=== PATIENT | male | born 1985 | race Caucasian/White ===

== ENCOUNTER 2017-02-17 15:23 | Inpatient (IN) | payer SELFPAY ==
[2017-02-17 15:53] LABS: % IMMATURE GRANULYOCYTES 0.2 % (0.0-1.1); ABSOLUTE IMMATURE GRANULOCYTES 0.01 10^3/uL (0.00-0.10); ADD DIFF? NO; ADD MORPH? NO; ADD SCAN? NO; ATYPICAL LYMPHOCYTE FLAG 40 (0-99); FRAGMENT RBC FLAG 0 (0-99); HEMATOCRIT 42.3 % (40.0-51.0); HEMOGLOBIN 14.3 g/dL (13.7-17.5); LEFT SHIFT FLG 0 (0-99); LIPEMIA HEMOLYSIS FLAG 90 (0-99); MEAN CELL HEMOGLOBIN 29.7 pg (27.9-34.1); MEAN CELL HEMOGLOBIN CONCENTR. 33.8 g/dL (32.4-36.7); MEAN CELL VOLUME 87.8 fL (81.5-99.8); MEAN PLATELET VOLUME 10.4 fL (8.7-11.7); PLATELET CLUMPS FLAG 0 (0-99); PLATELET COUNT 236 10^3/uL (150-400); RED BLOOD CELL COUNT 4.82 10^6/uL (4.40-6.38); RED CELL DISTRIBUTION WIDTH 14.3 % (11.5-15.2)
[2017-02-17 16:07] LABS: ANION GAP 10 mEq/L (8-16); CALCIUM 9.2 mg/dL (8.5-10.4); CARBON DIOXIDE 26 mEq/l (22-31); CHLORIDE 109 mEq/L (97-110); CREATININE 0.8 mg/dL (0.7-1.3); ETHANOL SERUM < 10 mg/dL (0-10); GLOMERULAR FILTRATION RATE > 60; GLUCOSE 67 mg/dL (70-100); POTASSIUM 3.5 mEq/L (3.5-5.2); SALICYLATE < 1.0 mg/dL (2.0-20.0); SODIUM 145 mEq/L (134-144)
--- NOTE | 2017-02-17 16:31 | EDPHY ---
H & P Time Seen by Provider: 02/17/17 15:25 HPI/ROS: HPI Depression, suicidal ideation. 31-year-old male by ambulance from the street. 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 He reports he is new to [place]. He has a history of chronic pain. He has a history of depression. He went to the [facility] because he stated that he felt suicidal. He was then sent here by ambulance. He states that he feels suicidal because of his chronic pain all over his body. He denies a plan because he states that any plan to kill himself is too expensive. He tells me that his told herself after a miscarriage. He reports that he was living with his mother in [place] but was then kicked out of her house and had no vertigo so he came up to [place]. ROS: Constitutional: No fever, no chills. As above. Eyes: No discharge. No changes in vision. ENT: No sore throat. No nasal congestion or rhinorrhea. Respiratory: No cough. No shortness of breath. Cardiac: No chest pain, no palpitations. Gastrointestinal: No abdominal pain, no vomiting, no diarrhea. Genitourinary: No hematuria. No dysuria or increased frequency with urination. Musculoskeletal: No back pain. No neck pain. Chronic pain all of his joints. Skin: No rashes. Neurological: No headache. No focal weakness or altered sensation. Past medical history: Asthma, scoliosis, CVA, brain injury, DJD, chronic pain, COPD. Social history: As above. Denies alcohol. Smoker. Denies IV drugs or street drugs. Physical Exam: General Appearance: Alert, no distress. Manic in nature. Disheveled. This patient is responding to questions appropriately and in full sentences. This patient appears well-hydrated and well-nourished. Eyes: Pupils equal and round no pallor or injection. No lid edema, erythema or injection. Respiratory: There are no retractions, lungs are clear to auscultation with good air movement bilaterally. Cardiovascular: Regular rate and rhythm. No murmur. Gastrointestinal: Abdomen is soft and nontender, no masses, bowel sounds normal. No focal tenderness at McBurney's point. No Rouse sign. Neurological: Motor sensory function is grossly intact. Cranial nerves are normal. Gait is normal. Skin: Warm and dry, no rashes. Musculoskeletal: Neck is supple and nontender. Extremities are symmetrical. All joints range without pain or impingement. Psychiatric: No agitation. No depression. Database: EKG: Imaging: Procedures: Emergency department course: 4:30 p.m., patient medically cleared. Behavioral Health notified. 8 p.m., informed by [facility] patient will be admitted to [address] [place] [address]. His remaining emergency department course under my care has been uneventful. He was transferred to [address] [place] [address] in stable condition. I filled out the appropriate transfer paperwork. Differential Diagnosis: The differential diagnosis on this patient includes but is not limited to malingering, situational depression, suicidal ideation. This represents a partial list of diagnoses considered. These considerations are based on history , physical exam, past history, reassessment and diagnostic testing. Smoking Status: Current every day smoker Constitutional: Initial Vital Signs Temperature (C) 36.6 C 02/17/17 15:33 Heart Rate 72 02/17/17 15:33 Respiratory Rate 18 02/17/17 15:33 Blood Pressure 113/73 02/17/17 15:33 O2 Sat (%) 98 02/17/17 15:33 O2 Delivery Mode Room Air Allergies/Adverse Reactions: cefaclor [From [facility]] Allergy (Verified 02/17/17 15:32) Home Medications: Medication Instructions Recorded Albuterol 02/17/17 Medical Decision Making - Data Points Laboratory Results: Laboratory Results 02/17/17 15:43 02/17/17 15:43 02/17/17 02/17/17 02/17/17 15:50 15:43 15:43 WBC 4.93 10^3/uL 10^3/uL (3.80-9.50) RBC 4.82 10^6/uL 10^6/uL (4.40-6.38) Hgb 14.3 g/dL g/dL (13.7-17.5) Hct 42.3 % % (40.0-51.0) MCV 87.8 fL fL (81.5-99.8) MCH 29.7 pg pg (27.9-34.1) MCHC 33.8 g/dL g/dL (32.4-36.7) RDW 14.3 % % (11.5-15.2) Plt Count 236 10^3/uL 10^3/uL (150-400) MPV 10.4 fL fL (8.7-11.7) Neut % (Auto) 61.9 % % (39.3-74.2) Lymph % (Auto) 27.0 % % (15.0-45.0) [place] % (Auto) 8.5 % % (4.5-13.0) Eos % (Auto) 2.0 % % (0.6-7.6) Baso % (Auto) 0.4 % % (0.3-1.7) Nucleat RBC Rel Count 0.0 % % (0.0-0.2) Absolute Neuts (auto) 3.05 10^3/uL 10^3/uL (1.70-6.50) Absolute Lymphs (auto) 1.33 10^3/uL 10^3/uL (1.00-3.00) Absolute Monos (auto) 0.42 10^3/uL 10^3/uL (0.30-0.80) Absolute Eos (auto) 0.10 10^3/uL 10^3/uL (0.03-0.40) Absolute Basos (auto) 0.02 10^3/uL 10^3/uL (0.02-0.10) Absolute Nucleated RBC 0.00 10^3/uL 10^3/uL (0-0.01) Immature Gran % 0.2 % % (0.0-1.1) Immature Gran # 0.01 10^3/uL 10^3/uL (0.00-0.10) Sodium 145 mEq/L H mEq/L (134-144) Potassium 3.5 mEq/L mEq/L (3.5-5.2) Chloride 109 mEq/L mEq/L (97-110) Carbon Dioxide 26 mEq/l mEq/l (22-31) Anion Gap 10 mEq/L mEq/L (8-16) BUN 12 mg/dL mg/dL (7-23) Creatinine 0.8 mg/dL mg/dL (0.7-1.3) Estimated GFR > 60 Glucose 67 mg/dL L mg/dL (70-100) Calcium 9.2 mg/dL mg/dL (8.5-10.4) Salicylates < 1.0 mg/dL L mg/dL (2.0-20.0) Urine Opiates Screen NEGATIVE (NEGATIVE) Acetaminophen < 10 mcg/mL L mcg/mL (10.0-30.0) Urine Barbiturates NEGATIVE (NEGATIVE) Ur Phencyclidine Scrn NEGATIVE (NEGATIVE) Ur Amphetamine Screen NEGATIVE (NEGATIVE) U Benzodiazepines Scrn NEGATIVE (NEGATIVE) Urine Cocaine Screen NEGATIVE (NEGATIVE) U Marijuana (THC) Screen NEGATIVE (NEGATIVE) Ethyl Alcohol < 10 mg/dL mg/dL (0-10) Medications Given: Discontinued Medications Lorazepam (Ativan) 1 mg PO EDNOW ONE Stop: 02/17/17 17:19 Last Admin: 02/17/17 17:21 Dose: 1 mg Departure - Departure Disposition: [facility] IP Clinical Impression: Situational depression, Suicidal ideation Referrals: NONE *PRIMARY CARE P,. [Primary Care Provider] - As per Instructions
[2017-02-17] MEDS ORDERED: LORazepam 1 MG TAB PO ONE (17:18)
[2017-02-17] MEDS ORDERED: ACETAMINOPHEN 325 MG TAB PO PRN (23:15)
[2017-02-17] MEDS ORDERED: MAG HYDROX/AL HYDROX/SIMETH 30 ML UDCUP PO PRN (23:15)
[2017-02-17] MEDS ORDERED: MAGNESIUM HYDROXIDE 30 ML UDCUP PO PRN (23:15)
[2017-02-17] MEDS ORDERED: ALBUTEROL 200 PUFFS/18 GM MDI IH PRN (23:16)
[2017-02-17] MEDS ORDERED: OLANZapine 5 MG TAB PO PRN (23:18)
[2017-02-17] MEDS: LORazepam 0.5 MG TAB PO PRN (23:29)
[2017-02-17] MEDS ORDERED: OLANZapine 10 MG TAB PO SCH (23:30)
[2017-02-18] MEDS: NICOTINE POLACRILEX 2 MG GUM B PRN ×2 (13:05→17:15)
[2017-02-18] MEDS: NICOTINE 14 MG/24 HR PATCH TD SCH (13:05)
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
--- NOTE | 2017-02-19 01:20 | BCON ---
[f rep st] BEHAVIORAL HEALTH CONSULTATION DATE OF CONSULTATION: 02/18/2017 REFERRING PHYSICIAN: Dr. Rich REASON FOR REFERRAL: Medical clearance for inpatient behavioral health stay. HISTORY OF PRESENT ILLNESS: The patient came to the emergency department reporting suicidal ideation due to chronic pain. Per review of notes in the medical record, he had come to [place] from [place] where he was living with his mother, but apparently he had conflict at home. He intended to stay with his half brother in [place]; however, he had conflict there, also. He has been homeless for an unknown time in [place], and finally came to [place] and presented at the emergency department. He was evaluated by the mental health team and admitted for further psychiatric care. Currently, he complains of chronic back pain and chronic foot pain. He reports he takes him 15 minutes to walk 1 block. He reports he is unable to work because of the pain. He says he has "bone on bone" at the L4-L5 level. He does not report what kind of medical evaluation he has had for this, saying that he has no insurance and he cannot be evaluated. Otherwise, he is without any acute complaints. PAST MEDICAL HISTORY: Brain injury, chronic pain, asthma, scoliosis, COPD. PAST SURGICAL HISTORY: He denies any surgeries. MEDICATIONS: He was on no medications. ALLERGIES: Listed to cefaclor and ketorolac. SOCIAL HISTORY: As above described in the HPI. Additionally, he is a smoker, and he is requesting nicotine gum. FAMILY HISTORY: Noncontributory. REVIEW OF SYSTEMS: Other than in HPI, he reports that he is unsure if he has had recent weight loss. He says his clothes fit about the same as they usually do. He reports that his appetite is okay. He denies nausea, vomiting, constipation, or diarrhea. He denies cough or dyspnea. He denies chest pain or palpitations, and other than that, a 10-point review of systems to the extent that could be completed was negative. PHYSICAL EXAMINATION: VITAL SIGNS: Blood pressure is 104/70, heart rate is 90 , respiratory rate is 14, oxygen saturation is 94% on room air. His weight is 63.5 kg for a body mass index of 16.5. GENERAL: This is a very thin man, appears his chronologic age, in bed, moderately cooperative, and showing distress likely out of proportion to any real pathology with any movements. HEENT: Extraocular movements are intact. Pupils are equal, round, and reactive to light. Mucous membranes are moist. Dentition is in good condition. NECK: Supple. HEART: There is a regular rate and rhythm with no murmurs, rubs, or gallops. LUNGS: Clear to auscultation bilaterally. ABDOMEN : Soft, nontender, nondistended with normoactive bowel sounds. EXTREMITIES: There is no cyanosis, clubbing, or edema. NEUROLOGIC: He is alert and oriented x3. Cranial nerves 2-12 are grossly intact. There is no focal weakness, and sensation is intact to light touch. LABORATORY STUDIES: Obtained in the emergency department, CBC was entirely within normal limits. Serum chemistry revealed overall normal renal function and electrolytes. His sodium was slightly elevated at 145. His glucose was slightly low at 67. Toxicology in the urine was negative for any substances of abuse and in the serum was negative for salicylates, acetaminophen, or ethyl alcohol. ASSESSMENT AND RECOMMENDATIONS: 1. Mental health issues pending further evaluation and management per Psychiatry and the mental health team. 2. Chronic pain. Difficult to differentiate true pain from possible malingering. Advise obtaining collateral information if possible from any prior medical evaluations, though on my exam, he was not cooperative with reporting where he might have had evaluation in the past. Acetaminophen has been per prescribed. I will add ibuprofen. 3. Underweight status. I will add a TSH to his labs that were drawn yesterday. 4. Tobacco dependence with request for nicotine gum. I see that this has been ordered. Advised smoking cessation. I see no medical contraindications to the patient's continued stay in the inpatient behavioral health unit or to any psychiatric medications or procedures. Thank you very much for including me in the care of the patient, and please do not hesitate to contact me or the hospitalist service should there be need for further medical evaluation. /[id number]/MODL MTDD
[2017-02-19] MEDS: NICOTINE POLACRILEX 2 MG GUM B PRN ×5 (08:42→18:07)
[2017-02-19] MEDS: NICOTINE 14 MG/24 HR PATCH TD SCH (08:48)
[2017-02-19] MEDS: LORazepam 0.5 MG TAB PO PRN ×3 (10:22→19:49)
--- NOTE | 2017-02-19 13:44 | SOAPPROG ---
SOAP Progress Note Assessment/Plan: Assessment: 02/19/17 13:39 Plan: 1. Maintain current treatment. 2. Patient continues to show no evidence of acute psychiatric symptoms. He has no AH/VH, he shows no signs of paranoia or delusions and denies any SI/HI. His main issues are that he is homeless and has no resources. When CC attempted to refer patient to [facility] to get connected with social media marketing manager, patient dismissed the referral, stating "I've already been there, all they offered me was a sleeping bag...they're not going to help me." Patient told RN "if you discharge me and I don't have a place to stay, I'm going to kill myself." 3. Will add malingering to patient's diagnoses. 4. CC will continue to work with patient to identify social media marketing manager that patient would be willing to accept. Otherwise, he will be responsible for finding his own fci since he refuses to go to homeless fci in the area. 5. Patient does have an intake appointment at [facility] on 02/23/17 at 11:45am. 6. Change legal status to voluntary. 7. Likely to d/c on Wednesday, unless he chooses to discharge over the weekend. CC has made him aware of his f/u appt next Wednesday. Subjective: Met with patient and discussed with staff. Patient is much calmer, less angry and hostile today. He is not yelling or screaming at MD. He politely requests a radio so he can listen to music. Staff suggest patient attend recreational group this AM and he can pick songs to listen to while group is going on. Patient states he wants to "take a radio to my room" where he can be alone b/c "I like to be away from people." Patient denies any AH/VH, there is no evidence of paranoia or delusions and patient denies any SI/HI. Objective: Vital Signs Temp Pulse Resp BP Pulse Ox 36.6 C 64 14 122/73 H 98 02/19/17 06:00 02/19/17 06:00 02/19/17 06:00 02/19/17 06:00 02/19/17 06:00 MSE: Thin, tall, wearing T-shirt and scrub pants. 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
[2017-02-20] MEDS: NICOTINE POLACRILEX 2 MG GUM B PRN ×6 (08:22→15:51)
[2017-02-20] MEDS: NICOTINE 14 MG/24 HR PATCH TD SCH (08:24)
[2017-02-20] MEDS: ESCITALOPRAM OXALATE 10 MG TAB PO SCH (10:36)
[2017-02-20] MEDS: LORazepam 0.5 MG TAB PO PRN ×2 (14:45→18:47)
[2017-02-20] MEDS: IBUPROFEN 600 MG TAB PO PRN (15:50)
--- NOTE | 2017-02-20 19:54 | SOAPPROG ---
SOAP Progress Note Assessment/Plan: Assessment: Plan: 02/20/17 19:56 My observation is in concordance with Dr. Rich's. Pt has long hx of depression and clear, primitive character issues. He is stressed by severe, if self- imposed, psychosocial stressors. He demonstrates salient signs and sx's of depression and I see no reason to refuse his request for antidepressant medication given a clear message that he needs to work on the other issues in his life as well. Will start Lexapro at 10mg, monitor. He reports "reverse chemical imbalance with every medication I've ever taken" describing severe side effects with most psychotropics except, interestingly, amitriptyline. As this is not a reasonable option this patient we will begin a trial of Lexapro. Subjective: Pt seen, discussed with staff and Dr. Rich, chart reviewed. He implored me to "take me seriously". States, "I really am depressed and all I ever think about is suicide." He states he wants to take an antidepressant as he believes this could be helpful as it has (to a limited degree by his own admission) in the past. He is somatically focussed, especially in regards to his pain. He reports "severe 20 out of 10" pain "everywhere all over my body." He repeatedly refers to having "degenerative disc disease." He relates this to pain in his back and "every joint in my body." He is witnessed walking briskly in the halls, moving without difficulty. He states, "It takes me ten minutes to get out of bed." He dramatically acts as if he cannot stand out of his chair in my office until I comment that I don't think it's really that bad and he gets up with no difficulty. I reviewed with him options for antidepressant treatment emphasizing that, at best, an AD would be a "tool" to help him in his journey of psychological healing. He is agreeable to a trial of Lexapro and the risks, benefits and alternatives are reviewed. Later in the afternoon, pt presented to the nurses' station and requested opioid pain medications. I was called and I told the RN that I would not prescribe these meds and that I had told the pt this in detail earlier. He then requested d/c and I agreed writing the orders. When it came time for him to actually leave the hospital, however, he stated he was not safe and asked to stay. D/c order was rejected. Objective: Vital Signs Temp Pulse Resp BP Pulse Ox 36.4 C 84 14 112/61 98 02/20/17 06:41 02/20/17 06:41 02/20/17 06:41 02/20/17 06:41 02/20/17 06:41 MSE: Tense, guarded, dramatic. Raises his voice with me several times, stating "no one cares about me", frequently using profanity. I redirected him on this behavior and he responded appropriately. His affect is constricted, stable, somewhat irritable and dysphoric. Mood is "really depressed." TP is linear, goal directed. TC reveals no psychosis. No SI at time of my interview. - Time Spent With Patient Time Spent With Patient: 35" ICD10 Worksheet Patient Problems: Problems Problem Status Onset Malingering Acute Personality change due to head injury Acute Situational depression Acute
[2017-02-21] MEDS: ESCITALOPRAM OXALATE 10 MG TAB PO SCH (08:11)
[2017-02-21] MEDS: NICOTINE POLACRILEX 2 MG GUM B PRN ×5 (08:14→17:10)
[2017-02-21] MEDS: NICOTINE 14 MG/24 HR PATCH TD SCH ×2 (08:31→10:40)
[2017-02-21] MEDS: LORazepam 0.5 MG TAB PO PRN ×2 (10:35→17:58)
[2017-02-21] MEDS: IBUPROFEN 600 MG TAB PO PRN (16:33)
[2017-02-21] MEDS ORDERED: diphenhydrAMINE 25 MG CAP PO PRN (20:14)
--- NOTE | 2017-02-21 21:10 | SOAPPROG ---
SOAP Progress Note Assessment/Plan: Assessment: 31yo CM from [place] with histrionic and borderline traits, and hx of malingering, and THC use. Reports chronic depression and suicidality, also chronic pain without clinical evidence. Recently agreed to trial Lexapro. 02/21/17 15:52 per staff, slept 12hr. On interview, reports not wanting Lexapro 10mg, "too strong" , doesn't like side effects, has had every s/e to any medication he's tried in past, and Lexapro didn't help anything, rather just gave him s/e of feeling "tense, can't swallow" after taking the med. "I won't take that again". Discussed options, agreed to try 5mg dose instead. Also c/o wanting med prn for sleep, usually Benadryl but more often just sleepy- time tea works. Talked about trying to reach his mother on FB, would like help doing so. Referred to t/w CM. Otherwise has no way to get her number. Volunteered that his mother "takes 10mg methadone 8x/day and percosets...we have the same genetic problems but my pain is worse." Related frustration of losing belongings (stolen) in [place], and also having problems getting help/housing "because I'm a convicted felon". Requests "someone to help me with insurance and getting disability", adding that his mother has his records together. T/a his hx of 3x CVA also cardiac surgery long ago. MSE: tall, thin CM with no physical evidence of distress, +talkative, with rapid speech but not pressured +redirectable, nml psychom activity, mood "frustrated", affect expansive, no evid of formal thought d/o, denied SI or thoughts to harm others, denied AH/VH. seems disinhibited. cognition grossly intact. i/j both limited. PLAN: Will decr Lexapro to 5mg qam, and uptitrate more gradually, although question pt 's investment in taking this medication long-term based on several early complaints. Benadryl 25mg prn insomnia- ordered, not taken, will d/c b/c hx of cognitive impairment/TBI States sleepytime tea preferential. Will order prn melatonin to be available. 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
[2017-02-22] MEDS ORDERED: MELATONIN 3 MG TAB PO PRN (02:25)
[2017-02-22] MEDS: NICOTINE POLACRILEX 2 MG GUM B PRN ×5 (08:16→22:42)
[2017-02-22] MEDS: ESCITALOPRAM OXALATE 10 MG TAB PO SCH (08:17)
[2017-02-22] MEDS: NICOTINE 14 MG/24 HR PATCH TD SCH (08:17)
[2017-02-22] MEDS: LORazepam 0.5 MG TAB PO PRN ×2 (09:23→19:37)
[2017-02-22] MEDS: IBUPROFEN 600 MG TAB PO PRN ×3 (09:30→15:51)
--- NOTE | 2017-02-22 15:48 | SOAPPROG ---
SOAP Progress Note Assessment/Plan: Assessment: 02/19/17 13:39 Plan: 1. Maintain current treatment. 2. Patient continues to show no evidence of acute psychiatric symptoms. He has no AH/VH, he shows no signs of paranoia or delusions and denies any SI/HI. His main issues are that he is homeless and has no resources. When CC attempted to refer patient to [facility] to get connected with social work administrator, patient dismissed the referral, stating "I've already been there, all they offered me was a sleeping bag...they're not going to help me." Patient told RN "if you discharge me and I don't have a place to stay, I'm going to kill myself." 3. Will add malingering to patient's diagnoses. 4. CC will continue to work with patient to identify social work administrator that patient would be willing to accept. Otherwise, he will be responsible for finding his own prison since he refuses to go to homeless prison in the area. 5. Patient does have an intake appointment at [facility] on 02/23/17 at 11:45am. 6. Change legal status to voluntary. 7. Likely to d/c on Wednesday, unless he chooses to discharge over the weekend. CC has made him aware of his f/u appt next Wednesday. 02/22/17 15:45 Plan: 1. Continue on Lexapro for mood. 2. Plan to d/c tomorrow. Has [facility] f/u appt on 02/23/17 at 11:45 3. Currently voluntary Subjective: Attempted to meet with patient who was lying in bed facing away from MD. The radio was playing in his room while patient seemed to sleep. MD called patient' s name several times and attempted to wake him up. But patient never opened his eyes or made eye contact. MD later saw patient walking down [address] to get lunch. He said he felt "fine" and was ready to discharge. He denied any SI/HI, no AH/VH , no paranoia or delusions. Objective: Vital Signs Temp Pulse Resp BP Pulse Ox 36.5 C 86 16 102/58 L 98 02/22/17 06:31 02/22/17 06:31 02/22/17 06:31 02/22/17 06:31 02/22/17 06:31 MSE: Uncooperative, would not wake up for interview, but later pleasant and polite. Affect: Smiling Mood: "Fine" TP: Linear TC: Denies any AH/VH, SI/HI, no paranoia or delusions. 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
[2017-02-23] MEDS: LORazepam 0.5 MG TAB PO PRN ×2 (00:15→11:41)
[2017-02-23 06:27] VITALS: BP 123/68; PULSE 80; RESP 18; TEMP 97.4; O2SAT 99
[2017-02-23] MEDS: NICOTINE POLACRILEX 2 MG GUM B PRN ×2 (08:32→10:00)
[2017-02-23] MEDS: NICOTINE 14 MG/24 HR PATCH TD SCH (09:35)
[2017-02-23] MEDS: ESCITALOPRAM OXALATE 10 MG TAB PO SCH (09:35)
[2017-02-23] MEDS: IBUPROFEN 600 MG TAB PO PRN (11:01)
--- NOTE | 2017-02-23 12:02 | BDS ---
[f rep st] BEHAVIORAL HEALTH DISCHARGE SUMMARY REASON FOR ADMISSION: Patient is a 31-year-old man brought in by ambulance from the street. 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 He reports he is new to [facility]. He has a history of chronic pain. He has a history of depression. He went to the [facility] because he stated he felt suicidal. He was then sent to the [facility] ED by kate he. He states that he feels suicidal because of his chronic pain all over his body. He denies any plan, because he states that any plan to kill himself is "too expensive." Patient told the ED phys axel that his killed herself after a miscarriage approximately 2 years ago. He also reported that he was living in [place] with his mother but was kicked out of her house and had nowhere else to go. So, he came to [place] supposedly to stay with his half-brother in [place], but mary ware said that he got into an argument with his half-brother, and he got kicked out of his brother's ho use. He has been homeless in [place] an unknown period of time and only recently arrived in [place]. States that he went to the ED because "I am fucking stuck here and I have nowhere else to go." ADMITTING DIAGNOSES: 1. Depression, severe, without psychotic symptoms. 2. 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 3. History of pervasive developmental delay. 4. Cannabis use disorder, severe. 5. Rule out malingering. 6. Psychosocial stressors include homelessness, financial problems, lack of social support, co mmitted suicide approximately 2 years ago, patient feels abandoned by his family, he is unemployed. ADMISSION PHYSICAL EXAMINATION: Was performed by Dr. Sriram Hughes. Please see his H and P fo r full details. ADMISSION LABORATORIES: White cell count was 4.93, hemoglobin 14.3, hematocrit 42.3, platelet count was 236. Sodium was 145, potassium was 3.5, chloride was 109, BUN was 12, creatinine was 0.8, gluc ose was 67. TSH was 0.054, free T4 was 1.09, free T3 was 4.31. His urine tox screen was negative f or drugs of abuse. Salicylates and acetaminophen were undetectable. His blood alcohol level was le ss than 10. HOSPITAL COURSE: The patient was admitted to [facility] health inpatient unit on . He was sta rted on Lexapro 10 mg p.o. daily for mood. The patient complained of feeling sedated and not liking the way he felt, thought that the dose was too high. Dr. Katherine Conway lowered that dose to 5 mg p.o. daily on 02/21/2017. The patient was evaluated by the internal medicine hospitalist about need ing possible thyroid supplementation because of the patient's low TSH on admission, but followup lab tests for free thyroxine T4 and T3 were both within normal limits, so it was determined the patient did not need any type of thyroid supplementation at this time. During his hospitalization, the pat ient continued to show no signs or evidence of acute psychiatric symptoms. He denied any auditory a nd visual hallucinations. He showed no signs of paranoia or delusions. He denied any thoughts, taj ns, or intent to hurt himself or hurt anyone else. His main issues are that he is homeless and has no resources. When [employer] attempted to refer the patient to [facility] to get connected with social media analyst, the patient dismissed the referral stating, "I have al ready been there. All they offered me was a sleeping bag, they are not going to help me." The zara ent told an RN that, "if you discharge me and I don't have a place to stay, I'm going to kill myself ." The patient admitted that his thoughts about suicide were only triggered by the thought of being homeless, and he did not want to stay in a homeless senior care. During his hospitalization, the caregivers homecare continue to work with the patient to identify social media analyst that the patient would be willing to accept. He did agree to have a followup appointment with [facility], and the day prior to discharge, the patient did say that he would take a referral to the [facility], but he needs to go down to [place] in order to keep that appointment. At discharge, he was provided with an RTD bus pass so that he could make that trip and keep his walk -in appointment with [facility] to pursue options for other types of housin g that would be more acceptable to the patient. At time of discharge, the patient denied any though ts, plans or intent to hurt himself. He said that he was looking forward to residing in [facility] d that he was interested in getting connected with [employer] T[employer] and that he would follow up with [facility]. He had an appointment on day of discharge. He was going directly from his the inpatient unit to his outpatient followup at 11:45.m. on 02/23/2017. CONDITION ON DISCHARGE: Stable. Patient's affect is euthymic. He is not endorsing any thoughts, p lans or intent to harm himself. DISCHARGE MEDICATIONS: Patient is leaving the hospital on Lexapro 5 mg p.o. daily for mood. DISCHARGE DIAGNOSES: 1. Depression, severe, without psychotic symptoms. 2. 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 3. History of pervasive developmental delay. 4. Cannabis use disorder, severe. 5. Psychosocial stressors include homelessness, financial problems, lack of social support. c ommitted suicide 2 years ago. Patient is isolated from his family who live in [place]. He is unem ployed, and he is stranded in [place] without much social support or local resources. DISPOSITION: The patient left the hospital directly to his followup appointment at [facility]. FOLLOWUP: Patient has intake appointment at [facility] at 11:45 a.m. on day of discharg e. LEGAL COURSE: The patient was converted to voluntary status with the expiration of his M1 hold. /[id number]/MODL
== END 2017-02-23 11:49 | disposition home or self-care (01) | DRG 885 ==
LOC: BBEH 22:51
PROVIDERS: ADMIT Specialist; ATTEND Specialist
DX: F33.2 Major depressive disorder, recurrent severe without psychotic features (principal); G89.29 Other chronic pain; F17.210 Nicotine dependence, cigarettes, uncomplicated; Z59.0 Homelessness; Z87.820 Personal history of traumatic brain injury; F12.90 Cannabis use, unspecified, uncomplicated
CPT/HCPCS: 80305; 84481-90; G0480